=== PATIENT | female | born 1965 | race Caucasian/White ===

== ENCOUNTER 2016-11-19 12:02 | Emergency (ER) | payer MEDICARE | END 2016-11-19 16:45 | disposition left against medical advice (07) | LOC: ER 12:02 | DX: Z53.21 Procedure and treatment not carried out due to patient leaving prior to being seen by health care provider (principal) | CPT/HCPCS: 87400; 99211 ==

== ENCOUNTER 2017-02-06 12:27 | Emergency (ER) | payer MEDICARE | END 2017-02-06 14:41 | disposition home or self-care (01) | LOC: ER 12:27 | DX: K04.7 Periapical abscess without sinus (principal); F17.210 Nicotine dependence, cigarettes, uncomplicated; Z88.0 Allergy status to penicillin; Z88.1 Allergy status to other antibiotic agents; Z88.5 Allergy status to narcotic agent | CPT/HCPCS: 99282 ==